=== PATIENT | female | born 1985 | race Caucasian/White ===

== ENCOUNTER 2022-10-06 12:46 | Outpatient (CLI) | payer MEDICARE, MEDICAID, SELFPAY ==
[2022-10-06 13:00] LABS: Basophils Absolute Auto 0.1 K/mm3 (0.0-0.1); Basophils Percent Auto 0.7 % (0.2-1.2); Eosinophils Absolute Auto 0.2 K/mm3 (0-0.3); Eosinophils Percent Auto 1.8 % (0-4.4); Hematocrit 44.1 % (37.0-47.0); Hemoglobin 14.6 g/dL (12.0-15.0); Immature Granulocyte Absolute 0.06 K/mm3 (0.00-0.031); Immature Granulocyte Percent A 0.6 % (0-0.5); Lymphocytes Absolute Auto 2.15 K/mm3 (0.9-3.2); Lymphocytes Percent Auto 22.6 % (18.3-44.2); Mean Corpuscular HGB Conc 33.1 g/dl (32-36); Mean Corpuscular Hemoglobin 29.3 pg (26-34); Mean Corpuscular Volume 88.6 fl (80-100); Mean Platelet Volume 9.2 fl (7.4-10.4); Monocytes Absolute Auto 0.5 K/mm3 (0.1-0.6); Monocytes Percent Auto 5.7 % (2.6-8.5); Neutrophils Absolute Auto 6.5 K/mm3 (1.3-6.7); Neutrophils Percent Auto 68.6 % (45.5-73.1); Platelet Count Result 436 k/mm3 (150-375); Red Blood Count 4.98 M/mm3 (4.2-5.4); Red Cell Distribution Width 14.3 % (11.5-14.5); White Blood Count 9.5 K/mm3 (4.5-10.0)
[2022-10-06 15:48] LABS: Alanine Aminotransferase 12 U/L (6-35); Alkaline Phosphatase 60 U/L (38-126); Anion Gap 9 mmol/L (8-16); Aspartate Amino Transferase 25 U/L (14-36); Bilirubin,Total 0.5 mg/dL (0.2-1.3); Blood Urea Nitrogen 19 mg/dL (7-17); CRP 1.2 mg/dL (<1.0); Carbon Dioxide 27 mmol/L (22-30); Chloride 105 mmol/L (98-107); Estimated Glomerular Filt Rate > 60; Glucose 95 mg/dL (65-110); Potassium 4.4 mmol/L (3.4-5.0); Sodium 141 mmol/L (137-145)
[2022-10-11 13:25] LABS: Exon 14; Gene JAK2; JAK2 V617F Mutation Detected (Not Detected); Mutation Frequency 3.8; Mutation Type missense; Specimen Source Blood
== END 2022-10-06 12:47 | disposition home or self-care (01) ==
LOC: ANHLAB 12:49
PROVIDERS: PCP Internal Medicine; Visit Provider Internal Medicine Hematology & Oncology
DX: D75.838 Other thrombocytosis (principal); D47.3 Essential (hemorrhagic) thrombocythemia
CPT/HCPCS: 36415; 80053; 81270; 85025; 86140

== ENCOUNTER 2023-01-28 12:52 | Outpatient (CLI) | payer MEDICARE, MEDICAID, SELFPAY ==
[2023-01-28 13:05] LABS: Basophils Absolute Auto 0.1 K/mm3 (0.0-0.1); Basophils Percent Auto 1.1 % (0.2-1.2); Eosinophils Absolute Auto 0.2 K/mm3 (0-0.3); Eosinophils Percent Auto 2.2 % (0-4.4); Hematocrit 46.8 % (37.0-47.0); Hemoglobin 15.5 g/dL (12.0-15.0); Immature Granulocyte Absolute 0.08 K/mm3 (0.00-0.031); Immature Granulocyte Percent A 0.9 % (0-0.5); Lymphocytes Percent Auto 23.8 % (18.3-44.2); Mean Corpuscular HGB Conc 33.1 g/dl (32-36); Mean Corpuscular Hemoglobin 29.8 pg (26-34); Mean Platelet Volume 9.3 fl (7.4-10.4); Monocytes Absolute Auto 0.6 K/mm3 (0.1-0.6); Monocytes Percent Auto 6.7 % (2.6-8.5); Neutrophils Absolute Auto 5.8 K/mm3 (1.3-6.7); Neutrophils Percent Auto 65.3 % (45.5-73.1); Platelet Count Result 477 k/mm3 (150-375); Red Cell Distribution Width 13.6 % (11.5-14.5); White Blood Count 8.8 K/mm3 (4.5-10.0)
[2023-01-28 13:12] LABS: Blood Urea Nitrogen 18 mg/dL (8-26); Carbon Dioxide 25 mmol/L (22-30); Chloride 104 mmol/L (98-109); Estimated Glomerular Filt Rate > 60; Glucose 101 mg/dL (70-105); Ionized Calcium (POC) 1.17 mmol/L (1.11-1.31); Potassium 4.1 mmol/L (3.5-4.9); Sodium 141 mmol/L (138-146)
== END 2023-01-28 12:53 | disposition home or self-care (01) ==
LOC: ANHLAB 12:55
PROVIDERS: PCP Family Medicine; Visit Provider Internal Medicine Hematology & Oncology
DX: D75.838 Other thrombocytosis (principal)
CPT/HCPCS: 36415; 80047; 85025

== ENCOUNTER 2023-05-21 14:34 | Outpatient (CLI) | payer MEDICARE, MEDICAID, SELFPAY ==
[2023-05-21 14:58] LABS: Basophils Absolute Auto 0.1 K/mm3 (0.0-0.1); Basophils Percent Auto 1.3 % (0.2-1.2); Eosinophils Absolute Auto 0.3 K/mm3 (0-0.3); Eosinophils Percent Auto 3.2 % (0-4.4); Hematocrit 45.4 % (37.0-47.0); Hemoglobin 14.8 g/dL (12.0-15.0); Immature Granulocyte Absolute 0.12 K/mm3 (0.00-0.031); Immature Granulocyte Percent A 1.3 % (0-0.5); Lymphocytes Absolute Auto 2.28 K/mm3 (0.9-3.2); Lymphocytes Percent Auto 24.1 % (18.3-44.2); Mean Corpuscular HGB Conc 32.6 g/dl (32-36); Mean Corpuscular Hemoglobin 29.5 pg (26-34); Mean Corpuscular Volume 90.4 fl (80-100); Mean Platelet Volume 9.2 fl (7.4-10.4); Monocytes Absolute Auto 0.7 K/mm3 (0.1-0.6); Monocytes Percent Auto 6.9 % (2.6-8.5); Neutrophils Percent Auto 63.2 % (45.5-73.1); Platelet Count Result 475 k/mm3 (150-375); Red Blood Count 5.02 M/mm3 (4.2-5.4); Red Cell Distribution Width 13.8 % (11.5-14.5); White Blood Count 9.5 K/mm3 (4.5-10.0)
[2023-05-21 15:53] LABS: Anion Gap 9 mmol/L (8-16); Blood Urea Nitrogen 19 mg/dL (7-17); Calcium 9.2 mg/dL (8.4-10.2); Carbon Dioxide 26 mmol/L (22-30); Chloride 104 mmol/L (98-107); Estimated Glomerular Filt Rate > 60; Glucose 94 mg/dL (65-110); Potassium 3.7 mmol/L (3.4-5.0); Sodium 139 mmol/L (137-145)
== END 2023-05-21 14:35 | disposition home or self-care (01) ==
LOC: ANHLAB 14:45
PROVIDERS: PCP Family Medicine; Visit Provider Internal Medicine Hematology & Oncology
DX: D75.838 Other thrombocytosis (principal)
CPT/HCPCS: 36415; 80048; 85025

== ENCOUNTER 2023-11-30 14:43 | Outpatient (CLI) | payer MEDICARE, MEDICAID, SELFPAY ==
[2023-11-30 14:57] LABS: Basophils Absolute Auto 0.1 K/mm3 (0.0-0.1); Basophils Percent Auto 1.2 % (0.2-1.2); Eosinophils Absolute Auto 0.2 K/mm3 (0-0.3); Eosinophils Percent Auto 2.7 % (0-4.4); Hematocrit 47.2 % (37.0-47.0); Hemoglobin 15.6 g/dL (12.0-15.0); Immature Granulocyte Absolute 0.07 K/mm3 (0.00-0.031); Immature Granulocyte Percent A 0.8 % (0-0.5); Lymphocytes Absolute Auto 2.48 K/mm3 (0.9-3.2); Lymphocytes Percent Auto 27.6 % (18.3-44.2); Mean Corpuscular HGB Conc 33.1 g/dl (32-36); Mean Corpuscular Volume 90.8 fl (80-100); Mean Platelet Volume 9.3 fl (7.4-10.4); Monocytes Absolute Auto 0.8 K/mm3 (0.1-0.6); Monocytes Percent Auto 8.5 % (2.6-8.5); Neutrophils Absolute Auto 5.3 K/mm3 (1.3-6.7); Neutrophils Percent Auto 59.2 % (45.5-73.1); Platelet Count Result 437 k/mm3 (150-375); Red Cell Distribution Width 13.8 % (11.5-14.5)
[2023-11-30 17:04] LABS: Anion Gap 10 mmol/L (4-12); Blood Urea Nitrogen 23 mg/dL (7-17); Calcium 9.9 mg/dL (8.4-10.2); Carbon Dioxide 25 mmol/L (22-30); Chloride 105 mmol/L (98-107); Estimated Glomerular Filt Rate > 60; Glucose 101 mg/dL (65-110); Potassium 4.6 mmol/L (3.4-5.0); Sodium 140 mmol/L (137-145)
== END 2023-11-30 14:44 | disposition home or self-care (01) ==
LOC: ANHLAB 14:46
PROVIDERS: PCP Family Medicine; Visit Provider Internal Medicine Hematology & Oncology
DX: D75.838 Other thrombocytosis (principal)
CPT/HCPCS: 36415; 80048; 85025

== ENCOUNTER 2024-05-31 13:47 | Outpatient (CLI) | payer MEDICARE, OTHER, SELFPAY ==
[2024-05-31 14:06] LABS: Basophils Absolute Auto 0.2 K/mm3 (0.0-0.1); Basophils Percent Auto 1.7 % (0.2-1.2); Eosinophils Absolute Auto 0.3 K/mm3 (0-0.3); Eosinophils Percent Auto 2.9 % (0-4.4); Hemoglobin 15.4 g/dL (12.0-15.0); Immature Granulocyte Absolute 0.09 K/mm3 (0.00-0.031); Lymphocytes Absolute Auto 2.17 K/mm3 (0.9-3.2); Lymphocytes Percent Auto 24.2 % (18.3-44.2); Mean Corpuscular HGB Conc 32.8 g/dl (32-36); Mean Corpuscular Hemoglobin 29.5 pg (26-34); Mean Platelet Volume 9.3 fl (7.4-10.4); Monocytes Absolute Auto 0.8 K/mm3 (0.1-0.6); Monocytes Percent Auto 8.4 % (2.6-8.5); Neutrophils Absolute Auto 5.6 K/mm3 (1.3-6.7); Neutrophils Percent Auto 61.8 % (45.5-73.1); Platelet Count Result 451 k/mm3 (150-375); Red Blood Count 5.22 M/mm3 (4.2-5.4); Red Cell Distribution Width 13.6 % (11.5-14.5)
[2024-05-31 14:28] LABS: Alanine Aminotransferase 10 U/L (6-35); Albumin Level 4.8 g/dL (3.5-5.1); Alkaline Phosphatase 86 U/L (38-126); Anion Gap 11 mmol/L (4-12); Aspartate Amino Transferase 26 U/L (14-36); Bilirubin,Total 0.6 mg/dL (0.2-1.3); Blood Urea Nitrogen 26 mg/dL (7-17); Calcium 9.7 mg/dL (8.4-10.2); Carbon Dioxide 28 mmol/L (22-30); Chloride 102 mmol/L (98-107); Cholesterol 218 mg/dL (0-200); Estimated Glomerular Filt Rate > 60; Glucose 99 mg/dL (65-110); HDL Direct 44 mg/dL; Sodium 141 mmol/L (137-145); Triglycerides 272 mg/dL (<150)
[2024-05-31 14:44] LABS: LDL Cholesterol Direct 110 mg/dL
== END 2024-05-31 13:48 | disposition home or self-care (01) ==
LOC: ANHLAB 13:49
PROVIDERS: PCP Physician Assistant Medical; Visit Provider Internal Medicine Hematology & Oncology
DX: D75.839 Thrombocytosis, unspecified (principal); D49.2 Neoplasm of unspecified behavior of bone, soft tissue, and skin; E78.1 Pure hyperglyceridemia; I10 Essential (primary) hypertension
CPT/HCPCS: 36415; 80053; 80061; 84443; 85025

== ENCOUNTER 2024-11-29 13:44 | Outpatient (CLI) | payer MEDICARE, MEDICAID, SELFPAY ==
[2024-11-29 13:58] LABS: Basophils Absolute Auto 0.1 K/mm3 (0.0-0.1); Basophils Percent Auto 1.3 % (0.2-1.2); Eosinophils Absolute Auto 0.3 K/mm3 (0-0.3); Eosinophils Percent Auto 2.8 % (0-4.4); Hematocrit 44.6 % (37.0-47.0); Hemoglobin 14.6 g/dL (12.0-15.0); Immature Granulocyte Absolute 0.12 K/mm3 (0.00-0.031); Immature Granulocyte Percent A 1.2 % (0-0.5); Lymphocytes Percent Auto 13.5 % (18.3-44.2); Mean Corpuscular HGB Conc 32.7 g/dl (32-36); Mean Corpuscular Hemoglobin 28.5 pg (26-34); Mean Corpuscular Volume 87.1 fl (80-100); Mean Platelet Volume 9.1 fl (7.4-10.4); Monocytes Absolute Auto 0.7 K/mm3 (0.1-0.6); Neutrophils Absolute Auto 7.7 K/mm3 (1.3-6.7); Neutrophils Percent Auto 74.2 % (45.5-73.1); Platelet Count Result 482 k/mm3 (150-375); Red Blood Count 5.12 M/mm3 (4.2-5.4); Red Cell Distribution Width 13.2 % (11.5-14.5); White Blood Count 10.4 K/mm3 (4.5-10.0)
[2024-11-29 14:57] LABS: Anion Gap 10 mmol/L (4-12); Blood Urea Nitrogen 19 mg/dL (7-17); Calcium 9.7 mg/dL (8.4-10.2); Carbon Dioxide 29 mmol/L (22-30); Chloride 103 mmol/L (98-107); Estimated Glomerular Filt Rate > 60; Glucose 103 mg/dL (65-110); Potassium 4.4 mmol/L (3.4-5.0); Sodium 142 mmol/L (137-145)
--- OUTSIDE RECORDS SUMMARY | 2024-11-29 14:59 | XMS_ITS | Referral Summary ---
Author Organization [facility] Address [address] [place] [address] Care Team Providers Care Phlebotomy Support Tech Name Role Phone Sisi Naik DPT Unavail able Surjit Manning MD PhD Unavailable Alvarado Bazan MD Primary Care Provider [phone] Delia Martin AREA OPERATIONS DIRECTOR Unavailable Ania Garcia OT Unavailable [phone] Encounters Date Type Department Care Team Description 11/14/2024 4:00 PM CDT Therapy [facility] Physical Therapy [address] [place] [phone] Sisi Naik, DPT Spastic quadriplegic cerebral palsy (HCC); Spasticity 11/10/2024 Orders Only [facility] KATIE SLEEP Scanning, Provider 11/10/2024 11:45 AM CDT Procedure visit [facility] Orthopaedic Surgery [address] [facility] [address]th [place] [address] [place] [phone] Linda Cantrell MD Cerebral palsy, unspecified type (HCC) (Primary Dx); Spasticity; Presence of intrathecal pump 11/07/2024 1:00 PM CDT Therapy [facility] Physical Therapy [facility] [address] [place] [address] Sisi Naik DPT Spastic cerebral palsy (HCC) (Primary Dx) 10/28/2024 11:00 AM SPLICER MACHINE OPERATOR Office Visit [facility] Orthopaedic Surgery [address] [place] [address] [address] [place] [address] [place] [address] Shilpa Hurd, DUNIA Spastic quadriplegic cerebral palsy (HCC) (Primary Dx); Spasticity; Presence of intrathecal pump; Dystonia; Anxiety disorder, unspecified type; Neurogenic bladder; Cerebral palsy, unspecified type (HCC); Impaired mobility and ADLs 10/11/2024 11:30 AM SPLICER MACHINE OPERATOR Office Visit [facility] Neuro Sleep [address] [facility] 6th [address] [place] [address] Jina Garces MD Central sleep apnea (Primary Dx); Parasomnia, unspecified type 10/05/2024 Plan of Care Documentation [facility] Physical Therapy [address] [place] [phone] 10/04/2024 Plan of Care Documentation [facility] Occupational Therapy [address] [place] [phone] 10/04/2024 2:00 PM SPLICER MACHINE OPERATOR Therapy [facility] Occupational Therapy [address] [place] [phone] Ania Garcia OT Spastic cerebral palsy (HCC) (Primary Dx) 10/04/2024 1:00 PM SPLICER MACHINE OPERATOR Therapy [facility] Physical Therapy [address] [place] [address] [address] [place] [address] Delia Martin, ARUNA Spastic cerebral palsy (HCC) 10/04/2024 11:30 AM SPLICER MACHINE OPERATOR Procedure visit [facility] Movement Disorders [address] [place] [address] 6th [place] [address] [place] [address] Surjit Manning MD PhD Dystonia (Primary Dx) 09/28/2024 1:45 PM SPLICER MACHINE OPERATOR Procedure visit [facility] Orthopaedic Surgery [facility] [address]th [place] [address] [place] [address] Linda Cantrell MD Spastic quadriplegic cerebral palsy (HCC) (Primary Dx); Spasticity; Presence of intrathecal pump; Dystonia 09/28/2024 Plan of Care Documentation [facility] Physical Therapy [address] [place] [address] [address] [place] [address] 09/27/2024 11:00 AM SPLICER MACHINE OPERATOR Therapy [facility] Physical Therapy [address] [facility] [address] [place] [address] Sisi Naik DPT Spastic quadriplegic cerebral palsy (HCC) (Primary Dx) from Last 3 Months Allergies No known active allergies Medications baclofen (LIORESAL) 20 mg tabletIndications: Muscle Spasticity of Spinal Origin Take 20 mg TID as instructed by physician only in case of ITB Pump malfunction/ intrathecal Baclofen withdrawal 40 tablet 01/19/20 19 Active famotidine (PEPCID) 10 mg tabletIndications: gastroesophageal reflux disease Take 1 tablet (10 mg total) by mouth nightly Active multivitamin tabletIndications: Vitamin Deficiency Prevention Take 1 tablet by mouth every morning Active polyethylene glycol (MIRALAX) 17 gram/dose powderIndications: constipation Take 17 g by mouth every morning Active hydroCHLOROthiazid e (HYDRODIURIL) 12.5 mg tabletIndications: hypertension Take 1 tablet (12.5 mg total) by mouth every morning 10/25/19 21 Active carvediloL (COREG) 3.125 mg tabletIndications: hypertension Take 1 tablet (3.125 mg total) by mouth 2 (two) times a day with meals 11/21/19 21 Active aspirin 81 mg chewable tabletIndications: prevention of thrombosis Take 1 tablet (81 mg total) by mouth nightly 10/30/19 23 Active carbidopa-levodopa (SINEMET) 25-100 mg per tabletIndications: Dystonia TAKE 3 TABLETS BY MOUTH THREE TIMES DAILY 810 tablet 3 06/04/20 23 Active mupirocin (BACTROBAN) 2 % ointment Apply to nares BID starting 5 days prior to surgery ending the day prior 22 g 04/04/20 24 Active chlorhexidine (HIBICLENS) 4 % external liquidIndications: Skin Disinfection Wash body daily in shower for 6 days prior to surgery. AVOID face 120 mL 1 04/04/20 24 Active drospirenone, contraceptive, (SLYND) tablet tabletIndications: Contraception Take 1 each (4 mg total) by mouth every morning Active sertraline (ZOLOFT) 100 mg tablet Take 1 tablet (100 mg total) by mouth daily 90 tablet 3 06/03/20 24 025 Active clonazePAM (KlonoPIN) 0.25 mg disintegrating tabletIndications: parasomnia Take 1.5 tab (0.375 mg) by mouth nightly for parasomnias. 45 tablet 5 08/09/20 24 Active cloNIDine (CATAPRES) 0.1 mg tabletIndications: SLEEP Take 1 tablet (0.1 mg total) by mouth nightly 60 tablet 2 09/12/19 25 Active Hospital, Clinic, or Other Facility Administered Medication Ordered Dose Route Frequency Start Date End Date Status baclofen (GABLOFEN) 40,000 mcg/20mL (2,000 mcg/mL) intrathecal 80,000 mcgIndications:Spa sticity 18534 mcg intrathec Continuous 08/10/2024 Active onabotulinumtoxin A (BOTOX) injection 600 UnitsIndications:D ystonia 600 Units IM Once for Clinic-Administe red Medication 01/03/2025 01/02/2026 Active Active Problems Problem Noted Date Diagnosed Date Central sleep apnea 12/10/2022 Recurrent UTI 12/10/2021 Assessment & Plan (12/04/2022 3:35 PM CDT): -Doing well overall and only reporting about 2 UTI's yearly. No hospitalizations with these and managed with OP treatment. PLAN: -Continue use of closed cath system to reduce UTI's. -Advised mom to perform catheterization 5 x's daily instead of 4. This may help prevent [place] from having incontinence episodes and reduce UTI's. Assessment & Plan (12/10/2021 11:28 AM CDT): -Culture confirmed 05/2021 and 08/2021 both growing Klebsiella. -UTI symptoms include frequency, urinary incontinence, and cloudy, malodorous urine. Other insomnia 09/28/2021 Constipation due to neurogenic bowel 09/28/2021 Speech abnormality 05/01/2021 Other dysphagia 05/01/2021 Urinary retention 01/10/2021 Assessment & Plan (12/10/2021 11:27 AM CDT): -Increasing difficulty for mom to catheterize her daughter due to current catheter supplies. She reports she was able to perform catheterization much more sterile and effectively with closed catheter system. -Patient has had 2 confirmed UTI's in last 6 months, both growing Klebsiella. Loni noted more urinary frequency requiring increased catheterization, cloudy, malodorous urine, and episodes of urinary incontinence with confirmed urine cultures. PLAN: -Will work with [address] [place] [address] to obtain coverage for closed system catheters. -Loni should continue to catheterize [place] about 4-5 times daily. Assessment & Plan (02/19/2021 3:20 PM CDT): -Patient previously urinating twice daily; however, more recently has not been urinating as often, sometimes only once. Mom does report she urinates large amounts when she does void. (medication vs. development of NGB vs. Behavioral?) -Tamsulosin does not seem to be helping. -Cranberry supplement seems to help. Recently had urine sample and negative for UTI. -Renal US showed large bladder but no hydronephrosis. She is on multiple medications that can sometimes cause retention. Mom says that she has follow up with neurologist March 01 and will be discussing this issue to see if some medications can be stopped. Neurologist had initially referred patient to Dr. Cox and mother is requesting appointment with him. -Discussed possible need for CIC or indwelling catheter in the future. For now, since patient has no signs of hydro on US and issues with UTI, will hold off. Patient's mother is aware that this is a possibility in the future. PLAN: -Continue cranberry supplement and push fluids to prevent UTI's. -Stop tamsulosin. -Will schedule appointment with Dr. Cox as requested. Assessment & Plan (01/10/2021 11:03 AM CDT): -Possible issues with urinary retention; however, patient unable to urinate while at the appointment so PVR was not done. Mom reports she urinates about twice daily. -We discussed possible causes of urinary retention and way to confirm would be further testing (uroD); however, due to patient's status, mother and I agreed she would not be able to tolerate or go through with this testing. -Discussed possibly reducing dosage of medications that can cause retention. Mother was instructed to discuss with the prescribing provider for dose adjustment. PLAN: -We will trial a course of tamsulosin to see if this helps with her urination. -Will obtain renal US to ensure no hydro. Acute cystitis 01/10/2021 Assessment & Plan (01/10/2021 11:06 AM CDT): -If urinary retention truly present, this is the likely cause. PLAN: -Push fluids. Patient's mother recently had attachment to her wheelchair that allows patient to drink water at anytime. -Start on cranberry supplement daily. -Attempt and encourage timed voiding as much as possible. Neurogenic bladder 01/10/2021 Assessment & Plan (12/04/2022 3:35 PM CDT): -Closed cath system working well for cora and [place]. -Currently performing catheterization 4 x's daily. -Creatinine remains normal. PLAN: -Renal US ordered. -Increase catheterization to 5x's daily. Assessment & Plan (05/31/2021 2:50 PM CDT): -Increased difficulty in voiding with worsening neurogenic bladder. -Patient's mother would like to perform CIC between voids. PLAN: -BMP today. If okay, will monitor about every 6 months. -Renal US again in 1 year. -Magda (mom) will be performing CIC. She was given coloplast video on how to perform self-catheterization. Magda was asked if she would like to perform here in clinic to ensure correct technique. She feels [place] would not be as relaxed and comfortable in this environment and would like to perform at home. She states OT (Jaja) gave them documents and demonstrated how to catheterize. Now that she has viewed video, she is feeling confident about technique. Magda was allowed opportunity to ask questions. Supplies and written instructions were sent home with the patient and mother. -If patient continues to void twice daily, would recommend CIC TID. If Magda is noting increased urine volume with CIC or patient voiding less, she should increase CIC to 4-5 times daily. 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 She had excellent benefits from the last botulinum toxin injections. This benefits have now started wearing off and she would be an appropriate candidate for repeat injections. The potential risks (including but not limited to bruising, hematoma, neck weakness, weakness, dysphagia, infection and injection site pain etc.), benefits, alternatives to chemodenervation were discussed and a signed consent was obtained. Recommendations: Botox injected under EMG guidance as detailed below. 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 She had excellent benefits from the last botulinum toxin injections. This benefits have now started wearing off and she would be an appropriate candidate for repeat injections. The potential risks (including but not limited to bruising, hematoma, neck weakness, weakness, dysphagia, infection and injection site pain etc.), benefits, alternatives to chemodenervation were discussed and a signed consent was obtained. Recommendations: Botox injected under EMG guidance as detailed below. 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 She had excellent benefits from the last botulinum toxin injections. This benefits have now started wearing off and she would be an appropriate candidate for repeat injections. The potential risks (including but not limited to bruising, hematoma, neck weakness, weakness, dysphagia, infection and injection site pain etc.), benefits, alternatives to chemodenervation were discussed and a signed consent was obtained. Recommendations: Botox injected under EMG guidance as detailed below. 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 She had excellent benefits from the last botulinum toxin injections. This benefits have now started wearing off and she would be an appropriate candidate for repeat injections. The potential risks (including but not limited to bruising, hematoma, neck weakness, weakness, dysphagia, infection and injection site pain etc.), benefits, alternatives to chemodenervation were discussed and a signed consent was obtained. Recommendations: Botox injected under EMG guidance as detailed below. 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 She had excellent benefits from the last botulinum toxin injections. This benefits have now started wearing off and she would be an appropriate candidate for repeat injections. The potential risks (including but not limited to bruising, hematoma, neck weakness, weakness, dysphagia, infection and injection site pain etc.), benefits, alternatives to chemodenervation were discussed and a signed consent was obtained. Recommendations: Botox injected under EMG guidance as detailed below. 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 She had excellent benefits from the last botulinum toxin injections. This benefits have now started wearing off and she would be an appropriate candidate for repeat injections. The potential risks (including but not limited to bruising, hematoma, neck weakness, weakness, dysphagia, infection and injection site pain etc.), benefits, alternatives to chemodenervation were discussed and a signed consent was obtained. Recommendations: Botox injected under EMG guidance as detailed below. 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 She had excellent benefits from the last botulinum toxin injections. This benefits have now started wearing off and she would be an appropriate candidate for repeat injections. The potential risks (including but not limited to bruising, hematoma, neck weakness, weakness, dysphagia, infection and injection site pain etc.), benefits, alternatives to chemodenervation were discussed and a signed consent was obtained. Recommendations: Botox injected under EMG guidance as detailed below. 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 She had excellent benefits from the last botulinum toxin injections. This benefits have now started wearing off and she would be an appropriate candidate for repeat injections. The potential risks (including but not limited to bruising, hematoma, neck weakness, weakness, dysphagia, infection and injection site pain etc.), benefits, alternatives to chemodenervation were discussed and a signed consent was obtained. Recommendations: Botox injected under EMG guidance as detailed below. 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 She had excellent benefits from the last botulinum toxin injections. This benefits have now started wearing off and she would be an appropriate candidate for repeat injections. The potential risks (including but not limited to bruising, hematoma, neck weakness, weakness, dysphagia, infection and injection site pain etc.), benefits, alternatives to chemodenervation were discussed and a signed consent was obtained. Recommendations: Botox injected under EMG guidance as detailed below. 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 She had excellent benefits from the last botulinum toxin injections. This benefits have now started wearing off and she would be an appropriate candidate for repeat injections. The potential risks (including but not limited to bruising, hematoma, neck weakness, weakness, dysphagia, infection and injection site pain etc.), benefits, alternatives to chemodenervation were discussed and a signed consent was obtained. Recommendations: Botox injected under EMG guidance as detailed below. 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 She had excellent benefits from the last botulinum toxin injections. This benefits have now started wearing off and she would be an appropriate candidate for repeat injections. The potential risks (including but not limited to bruising, hematoma, neck weakness, weakness, dysphagia, infection and injection site pain etc.), benefits, alternatives to chemodenervation were discussed and a signed consent was obtained. Recommendations: Botox injected under EMG guidance as detailed below. 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 Cerebral palsy 08/02/2015 Parasomnia 02/20/2015 Restrictive lung disease Resolved Problems Problem Noted Date Diagnosed Date Resolved Date Quadriplegic cerebral palsy 03/08/2008 03/27/2020 Immunizations Immunization Administration Dates Next Due Influenza, Quadrivalent, Spl it, Preservative Free, Intramuscular 06/22/2020 Influenza, Trivalent, Preservative Free, Intramu scular 07/13/2017 Influenza, Unspecified 05/22/2017,05/01/2017 Social History Tobacco Use Types Packs/Day Years Used Date Smoking Tobacco: Never Smokeless Tobacco: Never Tobacco Cessation:Counseling Given: Not Answered AUDIT-C Answer Date Recorded Frequency of Alcohol Consumption Not on file 04/18/2024 Q2: How many drinks containi ng alcohol do you have on a typical day when you are drinking? Patient does not drink Frequency of Binge Drinking Not on file 03/31 Personal Safety Answer Date Recorded Have you ever been in or are you currently in a harmful physical or emotional relationship or is someone making you feel afraid or unsafe? Patient unable to answer 05/06/2024 Comments No Sex and Gender Information Value Date Recorded Sex Assigned at Not on file Legal Sex Female 10:39 PM SPLICER MACHINE OPERATOR Gender Identity Female 01/19/2019 1:17 PM CDT Sexual Orientation Straight 01/19/2019 1: 17 PM CDT Last Filed Vital Signs Vital Sign Reading Time Taken Comments Blood Pressure 115/84 11/10/2024 12:00 PM CDT Pulse 94 11/10/2024 12:00 PM CDT Temperature 36.7 C (98.1 F) 10/11/2024 11:39 AM SPLICER MACHINE OPERATOR Respiratory Rate 18 05/06/2024 1:10 PM CDT Oxygen Saturation 100% 10/11/2024 11:39 AM SPLICER MACHINE OPERATOR Inhaled Oxygen Concentration - - Weight 54.4 kg (120 lb) 11/10/2024 12:00 PM CDT Height 154.9 cm (5' 1 ) 10/11/2024 11:39 AM SPLICER MACHINE OPERATOR Body Mass Index 22.67 10/11/2024 11:39 AM SPLICER MACHINE OPERATOR Plan of Treatment Not on file Medical Devices Implanted Type Area Retail Account Representative Device Identifier Shelf Expiration Date Model / Serial / Lot Medtronic Usa [employer] X Pump Infusion Programmable Ulp Ami 40ml Volume Synchromed [id number] 8667-40 - [id number] Implanted:Qty: 1 on 05/06/2024 by Alvarado Quach MD at [facility] Right: Abdomen Medtronic Usa [employer] X 8667-40 / / Procedures Procedure Name Priority Date/Time Associated Diagnosis Comments SLEEP LAB/STUDY - RESULT 11/10/2024 4:58 PM CDT from Last 3 Months Results * SLEEP LAB/STUDY - RESULT (11/10/2024 4:58 PM CDT) us Provider Scanning Final Result from Last 3 Months Insurance MEDICARE [facility] Address: [id number] [place] [address] IDPA [facility] ANTHEM ACCESS BLUE [facility] MEDICARE [facility] Address: [address] [address] [place] [address] [facility] Advance Directives For more information, please contact: [phone] Documents on File Type Date Recorded Patient Information Systems Project Manager Expl anation ADVANCE DIRECTIVE 12/05/2017 12:00 AM Care Teams Phlebotomy Support Tech Relationship Specialty Start Date End Date Alvarado Bazan MD [address] [place] [address] PCP - General Family Medicine 12/16/22 Sisi Naik, DPT [address] [place] [address] Physical Therapist Physical Therapy 09/10/22 Surjit Manning MD PhD [address] [place] [address] Consulting Physician Neurology 12/10/22 Delia Martin, AREA OPERATIONS DIRECTOR [address] [place] [address] Speech Language Pathologist Speech Therapy 06/04/23 Ania Garcia OT [address] [place] [address] Occupational Therapist Occupational Therapy 10/04/24
--- OUTSIDE RECORDS SUMMARY | 2024-11-29 15:00 | XMS_ITS | Clinical Summary ---
Author Organization [facility] Address [address] [place] [address] Phone Care Team Providers Care Instrument Repair Supervisor Name Role Phone Unavailable Primary Care Provider Unavailabl e Allergies No known active allergies Medications cloNIDine HCl (CATAPRES) 0.1 mg tablet Take 0.1 mg by mouth daily at bedtime. Active carbidopa-levod opa (SINEMET) 25-100 mg tablet Take 3 Tablets by mouth 3 times daily. Active sertraline (ZOLOFT) 50 mg tablet Take 75 mg by mouth daily. Active norethindrone ac-eth estradiol (JUNEL ., ORAL) Take by mouth daily. Active multivitamin (DAILY-SOULEYMANE) tablet Take 1 Tablet by mouth daily. Active OTHER daily Juice plus . Active famotidine (PEPCID) 10 mg tablet Take 10 mg by mouth daily at bedtime. Active polyethylene glycol 3350 (MIRALAX) 17 gram/dose Powder Take 17 Grams by mouth daily Dissolve in 8 ounces of fluid and drink entire liquid . Active carvediloL (COREG) 3.125 mg tablet Take 3.125 mg by mouth every 12 hours. 09/19/2022 Active hydroCHLOROthia zide (MICROZIDE) 12.5 mg capsule Take 12.5 mg by mouth. Active clonazePAM (KlonoPIN RAPID DISSOLVE) 0.25 mg Tablet, Rapid Dissolve Take 0.35 mg by mouth daily at bedtime. Active Active Problems Problem Noted Date Diagnosed Date Constipation due to neurogenic bowel 09/28/2021 Chronic neck pain 03/27/2020 Communication deficit 01/30/2019 Spasticity 01/17/2019 Anxiety disorder 03/25/2018 Cerebral palsy 08/02/2015 Encounters Date Type Department Care Team Description 11/16/2024 External Device Data STL ABSTRACTION Provider, Abstract 11/08/2024 External Device Data STL ABSTRACTION Provider, Abstract 11/08/2024 External Device Data STL ABSTRACTION Provider, Abstract 11/05/2024 External Device Data STL ABSTRACTION Provider, Abstract 11/04/2024 External Device Data STL ABSTRACTION Provider, Abstract 11/01/2024 External Device Data STL ABSTRACTION Provider, Abstract 10/18/2024 External Device Data STL ABSTRACTION Provider, Abstract 10/11/2024 External Device Data STL ABSTRACTION Provider, Abstract 09/21/2024 External Device Data STL ABSTRACTION Provider, Abstract 09/20/2024 External Device Data STL ABSTRACTION Provider, Abstract from Last 3 Months Immunizations Immunization Administration Dates Next Due Influenza Seasonal Unspecified Formulation IM Family History Medical History Relation Name Comments Aortic aneurysm Brother Aortic aneurysm Father Relation Name Status Comments Brother Father Alive Mother Alive Social History Tobacco Use Types Packs/Day Years Used Date Smoking Tobacco: Never Smokeless Tobacco: Never Tobacco Cessation:Counseling Given: Not Answered Alcohol Use Standard Drinks/Week Comments No 0 (1 standard drink = 0.6 oz pur e alcohol) Comments No Sex and Gender Information Value Date Recorded Sex Assigned at Female 07/20/2024 3:58 PM RADIO SURVEY WORKER Legal Sex Female 3:01 AM RADIO SURVEY WORKER Gender Identity Female 07/20/2024 3:58 PM RADIO SURVEY WORKER Sexual Orientation Not on file Last Filed Vital Signs Vital Sign Reading Time Taken Comments Blood Pressure 152/100 06/01/2024 11:35 AM CDT patient kept moving during Pulse 91 06/01/2024 11:35 AM CDT Temperature 36.6 C (97.8 F) 06/01/2024 11:35 AM CDT Respiratory Rate 16 06/01/2024 11:3 5 AM CDT Oxygen Saturation 97% 06/01/2024 11: 35 AM CDT Inhaled Oxygen Concentration - - Weight 52.6 kg (116 lb) 06/01/2024 11:3 5 AM CDT Height 154.9 cm (5' 1 ) 10/02/2022 2:56 PM RADIO SURVEY WORKER Body Mass Index 21.92 10/02/2022 2:56 PM RADIO SURVEY WORKER Plan of Treatment Upcoming Encounters Date Type Department Care Team (Late st Contact Info) Description 11/30/2024 11:30 AM CDT Office Visit [facility] Oncology and Hematology - [place] [address] [facility] [address] [place] [address] Luis Bowser MD [address] [facility] [address] [place] [address] Health Maintenance Due Date Last Done Comments HEPATITIS B VACCINES (1 of 3 - 19+ 3-dose series) 2002 Traditional Medicare (ACO) Annual Wellness Visit 2002 HPV/Cotest (21-29) 01/10/2004 CERVICAL CANCER SCREENING 2013 HPV/Cotest (30-65) 2013 PAP SMEAR 2013 INFLUENZA VACCINE (#1) 2024 , 07/01/2018, 07/13/2017 COVID-19 Vaccine (2023- season) 2024 11/09/2020, 10/12/2020 BREAST CANCER SCREENING 09/03/2024 09/03/19, 09/03/2023, 09/03/2023 DTAP/TDAP/TD VACCINES (2 - Td or Tdap) 06/17/2033 06/17/2023 HPV VACCINES Aged Out No longer eligi ble based on patient's age to complete this topic Medical Devices Implanted Type Area Board Turner Device Identifier Shelf Expiration Date Model / Serial / Lot Baclofen Pump Insurance MEDICARE PART A AND B [place] MED[place] A [place] B [place] Advance Directives For more information, please contact: [phone] Documents on File Type Date Recorded Patient Bolt Header Expl anation Advance Directive POA 09/17/2018 7:31 AM A dvance Directive POA Advance Directive Living Will 09/17/2018 7:31 AM * Full Code (Latest Code Status on File) Date Activated Date Inactivated Comments 09/17/2018 10:53 AM 09/18/2018 12:07 PM * Full Code Date Activated Date Inactivated Comments 09/17/2018 9:36 AM 09/17/2018 10:53 AM * Full Code Date Activated Date Inactivated Comments 09/17/2018 7:05 AM 09/17/2018 9:36 AM
--- OUTSIDE RECORDS SUMMARY | 2024-11-29 15:00 | XMS_ITS | Clinical Summary ---
Author Organization [facility] Address [address] [place] [address] Care Team Providers Care Front Line Supervisor Name Role Phone Rosi Watts PA-C Primary Care Provider [phone] Allergies No known active allergies Medications cloNIDine 0.1 MG tablet Take 0.1 mg by mouth nightly. Active carbidopa-levod opa 25-100 MG tablet Take 3 tablets by mouth 3 (three) times daily. Active sertraline 50 MG tablet Take 75 mg by mouth daily. Active carvedilol 3.125 MG tablet Take 3.125 mg by mouth 2 (two) times daily. Active hydroCHLOROthia zide 12.5 MG capsule Take 12.5 mg by mouth every morning. Active clonazePAM (KLONOPIN) 0.5 MG tablet Take 0.5 tablets (0.25 mg total) by mouth nightly as needed for Anxiety. Active baclofen 0.05 mg/mL (LIORESAL) 0.05 MG/ML injection by Intrathecal route once. Mom states patient has Baclofen pump Active aspirin EC (ECOTRIN) 81 MG tablet Take 1 tablet (81 mg total) by mouth daily. Active Encounters Date Type Department Care Team Description 09/06/2024 1:57 PM HANDLE ATTACHER - 09/06/2024 11:59 PM HANDLE ATTACHER Hospital Encounter [facility] [address] [place] [address] Prosper Arora MD Discharge Disposition: Home or Self Care (Routine Discharge) 09/06/2024 Travel from Last 3 Months Immunizations Name Administration Dates Next Due MODERNA COVID-19 (12+) MRNA, LNP-S, PF, 100 MCG/ 0.5 ML DOSE 11/09/2020,10/12/2020 Tdap (Boostrix) 06/17/2023 Family History Medical History Relation Comments Breast Cancer Neg Hx Social History Tobacco Use Types Packs/Day Years Used Date Smoking Tobacco: Never Smokeless Tobacco: Never Tobacco Cessation:Counseling Given: Not Answered Alcohol Use Standard Drinks/Week Comments Never 0 (1 standard drink = 0.6 oz pur e alcohol) Comments No Sex and Gender Information Value Date Recorded Sex Assigned at Not on file Legal Sex Female 8:22 PM CDT Gender Identity Not on file Sexual Orientation Not on file Last Filed Vital Signs Vital Sign Reading Time Taken Comments Blood Pressure 164/108 06/17/2023 5:31 PM CDT Pulse 114 06/17/2023 5:31 PM CDT Temperature 36.9 C (98.4 F) 06/17/2023 5:31 PM CDT Respiratory Rate 18 06/17/2023 5:31 PM CDT Oxygen Saturation 96% 06/17/2023 5:31 PM CDT Inhaled Oxygen Concentration - - Weight 52.2 kg (115 lb) 06/17/2023 5:31 PM CDT Height 154.9 cm (5' 1 ) 06/17/2023 5:31 PM CDT Body Mass Index 21.73 06/17/2023 5:31 PM CDT Plan of Treatment Health Maintenance Due Date Last Done Comments Cervical Cancer Screening Pap Smear (Age 30 to 64) Every 3 Years 1983 Annual Physical 1986 Hepatitis C 2001 Hepatitis B Vaccines (1 of 3 - 19+ 3-dose series) 2002 Cervical Cancer Screening Pap with HPV Testing (Age 30 to 64) Every 5 Years 2013 Cervical Cancer Screening with HPV 2013 COVID-19 Vaccine ( season) 2024 11/09/2020, 10/12/2020 Influenza Adult (#1) 2024 06/22/2020, 07/01/2018, 07/13/2017, Additional history exists Mammogram Screening 09/06/2026 09/06/2024, DTaP, Tdap and Td Vaccines (2 - Td or Tdap) 06/17/2033 06/17/2023 HPV Vaccines Aged Out No longer eligi ble based on patient's age to complete this topic Meningococcal B Vaccine Aged Out No l onger eligible based on patient's age to complete this topic Meningococcal Vaccine Aged Out No gurinder jose eligible based on patient's age to complete this topic Pneumococcal Vaccine: Pediatrics (0 to 5 Years) and At-Risk Patients (6 to 64 Years) Aged Out No longer eligible based on patient's age to complete this topic RSV Immunizations Under 20 Months Aged Out No longer eligible based on patient's age to complete this topic Procedures Procedure Name Priority Date/Time Associated Diagnosis Comments MG SCREENING W KALEY JOLENE DIGI Routine 09/06/2024 2:36 PM HANDLE ATTACHER Encounter for screening mammogram for malignant neoplasm of breast from Last 3 Months Results * MG SCREENING W KALEY JOLENE DIGI (09/06/2024 2:36 PM HANDLE ATTACHER) Anatomical Region Laterality Modality Breast Bilateral Mammography 09/06/2024 2:46 PM HANDLE ATTACHER Impressions 09/06/2024 2:50 PM HANDLE ATTACHER IMPRESSION: No suspicious change since 09/03/2023. Recommendation: 1: Routine Screening Bilateral in 1 Year Assessment: ACR BI-RADS 2 - BENIGN FINDING(S) Ordered By: PROSPER ARORA Interpreted By: Scott Allison MD, 09/06/2024 2:46 PM Narrative 09/06/2024 2:50 PM HANDLE ATTACHER [facility] [address] [place] [address] Examination: Digital screening mammogram with CAD. Clinical history: Asymptomatic patient presents for routine screening. Comparison: 09/03/2023. Technique: Bilateral digital mammograms. The exam was interpreted with the use of a computer-aided detection (CAD) system. Additional 3-D tomosynthesis images were acquired. Tissue density: The breasts are heterogeneously dense which may obscure small masses. Findings: Positioning is nonstandard secondary to the patient's general condition. See technologist comments. The breast tissue is heterogeneously dense. The dense tissue may obscure some lesions mammographically. Benign-appearing calcification noted. No suspicious mass, microcalcification or area of architectural distortion can be identified. From a mammographic standpoint, routine followup in one year would seem adequate. us Prosper Arora MD MAMMO Final Res ult from Last 3 Months Insurance MEDICARE MEDICAID Care Teams Front Line Supervisor Relationship Specialty Start Date End Date Rosi Watts PA-C [address] [place] [address] [address] [place] [address] PCP - General PHYSICIAN SORT MANAGER 06/17/23
--- OUTSIDE RECORDS SUMMARY | 2024-11-29 15:00 | XMS_ITS | Clinical Summary ---
Author Organization [facility] Address [address] [place] [address] Care Team Providers Care Narcotics And/Or Vice Detective Name Role Phone ZahraaSisi cedeño Leticia Rodriguez DPT Unavail able Surjit Manning MD PhD Unavailable Alvarado Bazan MD Primary Care Provider [phone] Delia Martin DAY CAMP COUNSELOR Unavailable Ania Garcia OT Unavailable [phone] Allergies No known active allergies Medications baclofen [...] mcg/20mL (2,000 mcg/mL) intrathecal 80,000 mcgIndications:Spa sticity 45560 mcg intrathec Continuous 08/10/2024 Active onabotulinumtoxin A [...] confirmed urine cultures. PLAN: -Will work with [address] [place] [address] to obtain coverage for closed system catheters. [...] CDT): -Closed cath system working well for mom and [place]. 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 [address]th [place] [address] [place] [address] Linda Cantrell MD Cerebral palsy, unspecified type (HCC) (Primary Dx); Spasticity; Presence of intrathecal pump 11/10/2024 Orders Only HOYT SLEEP Scanning, Provider 11/07/2024 1:00 PM CDT Therapy [facility] Physical Therapy [address] [place] [phone] Sisi Naik, DPPaige Spastic cerebral palsy (HCC) (Primary Dx) 10/28/2024 11:00 AM SLEEVE BOTTOM FELLER Office Visit [facility] Orthopaedic Surgery [address] [place] [address] [address] [place] [address] [place] [address] Shilpa Hurd NP Spastic quadriplegic cerebral palsy (HCC) (Primary Dx); Spasticity; Presence of intrathecal pump; Dystonia; Anxiety disorder, unspecified type; Neurogenic bladder; Cerebral palsy, unspecified type (HCC); Impaired mobility and ADLs 10/11/2024 11:30 AM SLEEVE BOTTOM FELLER Office Visit [facility] Neuro Sleep [address] [facility] 6th [address] [place] [address] Jina Garces MD Central sleep apnea (Primary Dx); Parasomnia, unspecified type 10/05/2024 Plan of Care Documentation [facility] Physical Therapy [address] [place] [phone] 10/04/2024 2:00 PM SLEEVE BOTTOM FELLER Therapy [facility] Occupational Therapy [address] [place] [phone] Ania Garcia OT Spastic cerebral palsy (HCC) (Primary Dx) 10/04/2024 1:00 PM SLEEVE BOTTOM FELLER Therapy [facility] Physical Therapy [address] [facility] [address] [place] [address] Delia Martin, DAY CAMP COUNSELOR Spastic cerebral palsy (HCC) 10/04/2024 11:30 AM SLEEVE BOTTOM FELLER Procedure visit [facility] Movement Disorders [address] [facility] 6th [place] [address] [place] [address] Surjit Manning MD PhD Dystonia (Primary Dx) 10/04/2024 Plan of Care Documentation [facility] Occupational Therapy [address] [place] [address] [address] [place] [address] 09/28/2024 1:45 PM SLEEVE BOTTOM FELLER Procedure visit [facility] Orthopaedic Surgery [facility] [address]th [place] [address] [place] [address] Linda Cantrell MD Spastic quadriplegic cerebral palsy (HCC) (Primary Dx); Spasticity; Presence of intrathecal pump; Dystonia 09/28/2024 Plan of Care Documentation [facility] Physical Therapy [address] [address] 09/27/2024 11:00 AM SLEEVE BOTTOM FELLER Therapy [facility] Physical Therapy [address] [place] [phone] Sisi Naik DPT Spastic quadriplegic cerebral palsy (HCC) (Primary Dx) from Last 3 Months Immunizations Immunization Administration Dates Next Due Influenza, Quadrivalent, Spl it, Preservative Free, Intramuscular 06/22/2020 Influenza, Trivalent, Preservative Free, Intramu scular 07/13/2017 Influenza, Unspecified 05/22/2017,05/01/2017 Surgical History Surgery Date Site/Laterality Comments [place] REFILL&MAINTENANCE PUMP DRUG DLVR SPINAL/BRAIN 08/31/2017 - 08/30/2018 Refill/Mainten Implantable Pump For Drug Deliv, Spinal/Brain - (Added by TW Conv) INCISION AND DRAINAGE / EXCISION THYROGLOSSAL CYST 09/17/2018 EYE MUSCLE SURGERY 08/31/2011 - 08/30/2012 Bilateral Medical History Medical History Date Comments Sleep apnea Cerebral palsy (HCC) Family History Medical History Relation Name Comments Abdominal Aortic Aneurysm Brother Low Back Pain Mother Family history of low back pain - (Added by TW Conv) Relation Name Status Comments Brother Mother Social History Tobacco Use Types Packs/Day Years [...] on file Legal Sex Female 10:39 PM SLEEVE BOTTOM FELLER Gender Identity Female 01/19/2019 1:17 PM CDT Sexual Orientation Straight 01/19/2019 1: 17 PM CDT Obstetrics History Last Filed Vital Signs Vital Sign Reading Time Taken Comments Blood Pressure 115/84 11/10/2024 12:00 PM CDT Pulse 94 11/10/2024 12:00 PM CDT Temperature 36.7 C (98.1 F) 10/11/2024 11:39 AM SLEEVE BOTTOM FELLER Respiratory Rate 18 05/06/2024 1:10 PM CDT Oxygen Saturation 100% 10/11/2024 11:39 AM SLEEVE BOTTOM FELLER Inhaled Oxygen Concentration - - Weight 54.4 kg (120 lb) 11/10/2024 12:00 PM CDT Height 154.9 cm (5' 1 ) 10/11/2024 11:39 AM SLEEVE BOTTOM FELLER Body Mass Index 22.67 10/11/2024 11:39 AM SLEEVE BOTTOM FELLER Plan of Treatment Health Maintenance Due Date Last Done Comments Cervical Cancer Screening 1983 Depression Screening 1983 Hepatitis C Screening 1983 Varicella Vaccines (1 of 2 - 13+ 2-dose series) 01/10/1996 Hepatitis B Screening 2001 Regular Well Visit/Exam 18-64 2001 Covid-19 Vaccine ( season) 2024 11/09/2020, 10/12/2020 Influenza Vaccine (Season Ended) 2025 06/22/2020, 07/13/2017, 05/22/2017, Additional history exists Breast Cancer Screening-Mammogram 09/06/2025 09/06/2024, 09/06/2024, 09/03/2023, Additional history exists DTaP/Tdap/Td Vaccine (2 - Td or Tdap) 06/17/2033 06/17/2023 HPV Vaccines Aged Out No longer eligi ble based on patient's age to complete this topic Pneumococcal vaccine <65 Aged Out No longer eligible based on patient's age to complete this topic Medical Devices Implanted Type Area Program Evaluator Device Identifier Shelf Expiration Date Model / Serial / Lot Medtronic [employer] X Pump Infusion Programmable Ulp Ami 40ml Volume Synchromed [id number] 8667-40 - [id number] Implanted:Qty: 1 on 05/06/2024 by Alvarado Quach MD at [facility] Right: Abdomen Medtronic [employer] X 8667-40 / / Procedures Procedure Name Priority Date/Time Associated Diagnosis Comments SLEEP LAB/STUDY - RESULT 11/10/2024 4:58 PM CDT from Last 3 Months Results * SLEEP LAB/STUDY - RESULT (11/10/2024 4:58 PM CDT) Provider Scanning Final Result from Last 3 Months Insurance MEDICARE [facility] Address: [address] [address] [employer]VT [facility] MEDICARE [place] Advance Directives For more information, please contact: [phone] Documents on File Type Date Recorded Patient Pharmacist Helper Expl anation ADVANCE DIRECTIVE 12/05/2017 12:00 AM Care Teams Narcotics And/Or Vice Detective Relationship Specialty Start Date End Date Alvarado Bazan MD [address] [place] [address] PCP - General Family Medicine 12/16/22 Sisi Naik DPT [address] [facility] [address] [place] [address] Physical Therapist Physical Therapy 09/10/22 Surjit Manning MD PhD [address] [place] [address] Consulting Physician Neurology 12/10/22 Delia Martin, DAY CAMP COUNSELOR [address] [place] [address] Speech Language Pathologist Speech Therapy 06/04/23 Ania Garcia OT [address] [place] [address] Occupational Therapist Occupational Therapy 10/04/24
== END 2024-11-29 13:45 | disposition home or self-care (01) ==
LOC: ANHLAB 13:45
PROVIDERS: PCP Physician Assistant Medical; Visit Provider Internal Medicine Hematology & Oncology
DX: D75.838 Other thrombocytosis (principal)
CPT/HCPCS: 36415; 80048; 85025

== ENCOUNTER 2025-08-08 10:30 | Outpatient (CLI) | payer MEDICARE, MEDICAID, SELFPAY ==
[2025-08-08 10:46] LABS: Hematocrit 50.3 % (37.0-47.0); Hemoglobin 16.6 g/dL (12.0-15.0); Immature Granulocyte Percent A 1.0 % (0-0.5); Lymphocytes Absolute Auto 1.83 K/mm3 (0.9-3.2); Mean Corpuscular HGB Conc 33.0 g/dl (32-36); Mean Corpuscular Hemoglobin 30.2 pg (26-34); Mean Corpuscular Volume 91.6 fl (80-100); Nucleated Red Blood Cells Absolute Auto 0.000 K/mm3 (0.0-0.012); Nucleated Red Blood Cells Perc 0.0 % (0.0-0.2); Platelet Count Result 409 k/mm3 (150-375); Red Blood Count 5.49 M/mm3 (4.2-5.4); White Blood Count 8.1 K/mm3 (4.5-10.0)
[2025-08-08 10:51] LABS: Blood Urea Nitrogen 21 mg/dL (8-26); Carbon Dioxide 24 mmol/L (22-30); Chloride 104 mmol/L (98-109); Estimated Glomerular Filt Rate > 60; Glucose 113 mg/dL (70-105); Ionized Calcium (POC) 1.17 mmol/L (1.11-1.31); Potassium 3.6 mmol/L (3.5-4.9); Sodium 142 mmol/L (138-146)
== END 2025-08-08 10:31 | disposition home or self-care (01) ==
LOC: ANHLAB 10:31
PROVIDERS: PCP Physician Assistant Medical; Visit Provider Internal Medicine Hematology & Oncology
DX: D75.838 Other thrombocytosis (principal)
CPT/HCPCS: 36415; 80047; 85025